=== PATIENT | female | born 1990 ===

== ENCOUNTER 2018-04-28 14:49 | Emergency (ER) | payer OTHER ==
--- NOTE | 2018-04-28 16:10 | ED PDOC ---
HPI: Headache Time Seen by Provider: 04/28/18 15:42 Chief Complaint (Nursing): Dizziness/Lightheaded Chief Complaint (Provider): Headache, Tiredness History Per: Patient History/Exam Limitations: no limitations Onset/Duration Of Symptoms: Days (x1 week) Current Symptoms Are (Timing): Constant Additional Complaint(s): 27 year old female presents to the ED for evaluation of a mild headache, generalized weakness, and feeling cold for the past week. Patient states that she has constantly been feeling tired like she needs to sleep with dizziness, but no vision changes, syncopal episodes, nausea, vomiting, diarrhea, urinary symptoms, chest pain, shortness of breath, and any new exposures or recent trauma. PMD: none provided Past Medical History Reviewed: Historical Data, Nursing Documentation, Vital Signs Vital Signs: Last Vital Signs Temp 98.2 F 04/28/18 15:26 Pulse 63 04/28/18 15:26 Resp 16 04/28/18 15:26 BP 113/69 04/28/18 15:26 Pulse Ox 99 04/28/18 15:26 - Medical History PMH: No Chronic Diseases Denies: Chronic Kidney Disease - Surgical History Surgical History: Cholecystectomy - Family History Family History: States: Unknown Family Hx - Social History Current smoker - smoking cessation education provided: No Alcohol: None Drugs: Denies - Allergies Allergies/Adverse Reactions: Allergies Allergy/AdvReac Type Severity Reaction Status Date / Time No Known Allergies Allergy Verified 04/28/18 15:26 Review of Systems ROS Statement: Except As Marked, All Systems Reviewed And Found Negative Constitutional: Positive for: Weakness (and tiredness, generalized), Other (feeling cold) Eyes: Negative for: Vision Change Cardiovascular: Negative for: Chest Pain Respiratory: Negative for: Shortness of Breath Gastrointestinal: Negative for: Nausea, Vomiting, Diarrhea Genitourinary Female: Negative for: Dysuria, Frequency, Incontinence Neurological: Positive for: Weakness, Headache, Dizziness. Negative for: Other (syncopal episode) Physical Exam - Reviewed Nursing Documentation Reviewed: Yes Vital Signs Reviewed: Yes - Physical Exam Appears: Positive for: No Acute Distress Head Exam: Positive for: ATRAUMATIC, NORMAL INSPECTION, NORMOCEPHALIC Skin: Positive for: Normal Color, Warm, Dry. Negative for: Rash Eye Exam: Positive for: EOMI, Normal appearance, PERRL ENT: Positive for: Normal ENT Inspection Neck: Positive for: Normal, Painless ROM, Supple Cardiovascular/Chest: Positive for: Regular Rate, Rhythm Respiratory: Positive for: Normal Breath Sounds. Negative for: Respiratory Distress Gastrointestinal/Abdominal: Positive for: Normal Exam, Soft. Negative for: Tenderness Back: Positive for: Normal Inspection. Negative for: L CVA Tenderness, R CVA Tenderness Extremity: Positive for: Normal ROM (all extremities). Negative for: Tenderness Neurological/Psych: Positive for: Awake, Alert, Symmetric/Intact Strength, Oriented (x3), emergency medical technician II-XII (grossly intact). Negative for: Motor/Sensory Deficits, Facial Droop - Laboratory Results Result Diagrams: 04/28/18 18:17 04/28/18 18:17 Lab Results: no acute - ECG ECG: Positive for: Interpreted By Me, Viewed By Me ECG Rhythm: Positive for: Normal QRS, Normal ST Segment, Sinus Rhythm O2 Sat by Pulse Oximetry: 99 (RA) Pulse Ox Interpretation: Normal - CT Scan/US ct Other Rad Studies (CT/US): Read By Radiologist Other Rad Interpretation: no acute - Progress ED Course And Treament: 184: Stable. AAOx3. Pain free. Tolerated PO. Fu with pcp. Medical Decision Making Medical Decision Making: Time: 1549 Impression: generalized weakness, headache Initial Plan: --EKG --CT head without contrast --CMP --Trop I --U-dip --U-preg --CBC with differential --Normal saline IV --Reevaluation Scribe Attestation: Documented by Leslye Sampson, acting as a scribe for Malachi Perez MD. Provider Scribe Attestation: All medical record entries made by the Scribe were at my direction and personally dictated by me. I have reviewed the chart and agree that the record accurately reflects my personal performance of the history, physical exam, medical decision making, and the department course for this patient. I have also personally directed, reviewed, and agree with the discharge instructions and disposition. Disposition - Clinical Impression Clinical Impression: Dizziness - Patient ED Disposition Is Patient to be Admitted: No Counseled Patient/Family Regarding: Studies Performed, Diagnosis, Need For Followup - Disposition Referrals: [facility] [Outside] - 04/30/18 Disposition: Routine/Home Disposition Time: 16:39 Condition: STABLE Instructions: Dizziness, Nonvertigo, (DC) Print Language: KITTITIAN
[2018-04-28] MEDS ORDERED: Sodium Chloride 0.9% 1,000 ML IV STA (16:13)
--- NOTE | 2018-04-28 16:43 | CT ---
Date of service: 04/28/2018 PROCEDURE: CT HEAD WITHOUT CONTRAST. HISTORY: Headache COMPARISON: None available. TECHNIQUE: Axial computed tomography images were obtained through the head/brain without intravenous contrast. Radiation dose: Total exam DLP = 669.43 mGy-cm. This CT exam was performed using one or more of the following dose reduction techniques: Automated exposure control, adjustment of the mA and/or kV according to patient size, and/or use of iterative reconstruction technique. FINDINGS: HEMORRHAGE: No intracranial hemorrhage. BRAIN: No mass effect or edema. No atrophy or chronic microvascular ischemic changes. VENTRICLES: Unremarkable. No hydrocephalus. CALVARIUM: Unremarkable. PARANASAL SINUSES: Frontal sinuses are hypoplastic. Remaining visualized paranasal sinuses are well-developed and currently well-aerated. MASTOID AIR CELLS: Unremarkable as visualized. No inflammatory changes. OTHER FINDINGS: None. IMPRESSION: Normal CT of the Head.
[2018-04-28 18:23] LABS: BASO # 0.1 K/uL (0.0-0.2); EOS # 0.2 K/uL (0.0-0.7); EOS % 2.1 % (0.0-4.0); HEMOGLOBIN 13.1 g/dL (12.0-16.0); LYMPH # 2.9 K/uL (1.0-4.3); LYMPH % 39.1 % (20.0-40.0); MEAN CELL VOLUME 89.5 fl (81.0-99.0); MEAN CORPUSCULAR HEMOGLOBIN 29.4 pg (27.0-31.0); MEAN CORPUSCULAR HGB CONC 32.9 g/dL (33.0-37.0); MEAN PLATELET VOLUME 9.4 fl (7.2-11.7); MONO # 0.7 K/uL (0.0-0.8); MONO % 9.6 % (0.0-10.0); NEUT # 3.6 K/uL (1.8-7.0); NEUT % 48.2 % (50.0-75.0); RBC 4.44 Mil/uL (3.80-5.20); RED CELL DISTRIBUTION WIDTH 12.9 % (11.5-14.5); WHITE BLOOD COUNT 7.5 K/uL (4.8-10.8)
[2018-04-28 18:29] LABS: ALB/GLOB RATIO 1.4 (1.0-2.1); ALBUMIN 4.5 g/dL (3.5-5.0); ALT/SGPT 128 U/L (9-52); AST/SGOT 74 U/L (14-36); BLOOD UREA NITROGEN 10 mg/dl (7-17); CALCIUM 9.8 mg/dL (8.4-10.2); GFR NON-AFRICAN AMERICAN > 60
[2018-04-28 18:54] VITALS: BP 120/70; PULSE 74; RESP 20; TEMP 98; O2SAT 98
--- NOTE | 2018-04-29 16:42 | CARD ---
APPROVED REPORT Date of service: 04/28/2018 EKG Measurement Heart [id number] <Conclusion> Sinus bradycardia Otherwise normal ECG
== END 2018-04-28 18:54 | disposition home or self-care (01) ==
LOC: H.ER 14:49
DX: R42 Dizziness and giddiness (principal)
CPT/HCPCS: 70450; 80053; 81025; 82948; 84484; 85025; 93005; 96360; 99285; J7030

== ENCOUNTER 2018-05-29 08:30 | Emergency (ER) | payer OTHER ==
[2018-05-29 08:36] VITALS: PULSE 71; O2SAT 100
[2018-05-29 08:37] VITALS: BMI 22.1
--- NOTE | 2018-05-29 10:11 | ED PDOC ---
HPI: Abdomen Additional Complaint(s): 27 y/o F with no known PMH is complaining of nonradiating, intermittent dull lower abdominal pain, 8/10 x 3-4 days, not accompanied by fever, chills, nausea, vomitting, diarrhea or vaginal bleeding. She reports LMP: approx.03/20/2017, but uncertain. She denies any hx of STI. OBGNhx: denies any previous pregnancies (no abx, miscarriages) PMH: denies Meds: denies Allergies: NKDA Surghx: cholecystectomy 5 yrs ago Famhx: noncontributory Sochx: denies etOH, cigarette or elicit drug use ROS: all points reviewed and are negative unless otherwise mentioned in HPI <Bernadette Macario - Last Filed: 05/29/18 12:37> <Boby Osman - Last Filed: 05/29/18 15:46> Time Seen by Provider: 05/29/18 09:10 Chief Complaint (Nursing): Abdominal Pain Supervising Attending Note - Supervising Attending Note The Documented history was done by the: Physician Certified Registered Dental Assistant The documented physical exam was done by the: Physician Certified Registered Dental Assistant The documented procedures were done by the: Physician Certified Registered Dental Assistant - Attestation: I have personally seen and examined this patient.: Yes I have fully participated in the care of the patient.: Yes I have reviewed all pertinent clinical information: Yes <Boby Osman Y - Last Filed: 05/29/18 15:46> Past Medical History Vital Signs: Last Vital Signs Temp 98.8 F 05/29/18 08:35 Pulse 71 05/29/18 08:35 Resp 05/29/18 08:35 BP 106/67 05/29/18 08:35 Pulse Ox 100 05/29/18 08:35 - Medical History PMH: Denies: Chronic Kidney Disease - Surgical History Surgical History: Cholecystectomy - Family History Family History: States: Unknown Family Hx <Bernadette Macario - Last Filed: 05/29/18 12:37> Vital Signs: Last Vital Signs Temp 98.8 F 05/29/18 08:35 Pulse 71 05/29/18 08:35 Resp 15 05/29/18 08:35 BP 106/67 05/29/18 08:35 Pulse Ox 100 05/29/18 12:39 <Boby Osman Y - Last Filed: 05/29/18 15:46> - Allergies Allergies/Adverse Reactions: Allergies Allergy/AdvReac Type Severity Reaction Status Date / Time No Known Allergies Allergy Verified 04/28/18 15:26 Physical Exam - Physical Exam Appears: Positive for: Non-toxic, No Acute Distress Head Exam: Positive for: ATRAUMATIC, NORMAL INSPECTION Skin: Positive for: Normal Color Eye Exam: Positive for: PERRL ENT: Positive for: Normal ENT Inspection. Negative for: Nasal Congestion, Pharyngeal Erythema, Tonsillar Exudate Neck: Positive for: Painless ROM Cardiovascular/Chest: Positive for: Regular Rate, Rhythm. Negative for: Murmur Respiratory: Negative for: Wheezing, Respiratory Distress Gastrointestinal/Abdominal: Positive for: Bowel Sounds, Soft, Tenderness, Other (midline abdominal scar noted above the umbilicus; + suprapubic tenderness, no rigidity, noguarding, no rebound tenderness). Negative for: Distended, Guarding, Rebound Back: Negative for: L CVA Tenderness, R CVA Tenderness Extremity: Positive for: Capillary Refill. Negative for: Tenderness Neurological/Psych: Positive for: Awake, Alert <Bernadette Macario - Last Filed: 05/29/18 12:37> - Laboratory Results Result Diagrams: 05/29/18 10:13 05/29/18 10:13 Lab Results: B-HC Urine dip results: Negative for: Leukocyte Esterase, Blood, Nitrate, Glucose, Protein - ECG O2 Sat by Pulse Oximetry: 100 <Bernadette Macario - Last Filed: 05/29/18 12:37> - Laboratory Results Result Diagrams: 05/29/18 10:13 05/29/18 10:13 Lab Results: Total Bilirubin 0.6 mg/dl (0.2-1.3) 05/29/18 10:13 AST 36 U/L (14-36) D 05/29/18 10:13 ALT 49 U/L (9-52) 05/29/18 10:13 Alkaline Phosphatase 69 U/L (38-126) 05/29/18 10:13 Total Protein 7.1 G/DL (6.3-8.2) 05/29/18 10:13 Albumin 4.4 g/dL (3.5-5.0) 05/29/18 10:13 Globulin 2.7 gm/dL (2.2-3.9) 05/29/18 10:13 Albumin/Globulin Ratio 1.6 (1.0-2.1) 05/29/18 10:13 Urine Color Yellow (YELLOW) 05/29/18 10:10 Urine Clarity Cloudy (Clear) 05/29/18 10:10 Urine pH 7.0 (5.0-8.0) 05/29/18 10:10 Ur Specific [place] 1.018 (1.003-1.030) 05/29/18 10:10 Urine Protein Negative mg/dL (NEGATIVE) 05/29/18 10:10 Urine Glucose (UA) Neg mg/dL (NEGATIVE) 05/29/18 10:10 Urine Ketones Negative mg/dL (NEGATIVE) 05/29/18 10:10 Urine Blood Negative (NEGATIVE) 05/29/18 10:10 Urine Nitrate Negative (NEGATIVE) 05/29/18 10:10 Urine Bilirubin Negative (NEGATIVE) 05/29/18 10:10 Urine Urobilinogen 0.2-1.0 mg/dL (0.2-1.0) 05/29/18 10:10 Ur Leukocyte Esterase Neg Laura/uL (Negative) 05/29/18 10:10 Urine RBC (Auto) 3 /hpf (0-3) 05/29/18 10:10 Urine Microscopic WBC 2 /hpf (0-5) 05/29/18 10:10 Ur Squamous Epith Cells 16 /hpf (0-5) H 05/29/18 10:10 Urine Bacteria Few (<OCC) H 05/29/18 10:10 Urine Sperm (Auto) Rare /hpf (NONE) H 05/29/18 10:10 Beta HCG, Quant 186.51 mIU/mL 05/29/18 10:13 - Progress ED Course And Treament: 14:50 Patient will come back in 2 days as her HCG is low. <Boby Osman Y - Last Filed: 05/29/18 15:46> Medical Decision Making Medical Decision Making: note pt seen at bedside. presenting with pelvic pain and positive . pt without vaginal bleeding. hcg still low pt feels iumproved after tylenol. instructed to follow up in 2 days for repeat hcg and ultrasound and if symptoms worsen to return immediately. pt agreeable to plan. <Boby Osman Y - Last Filed: 05/29/18 15:46> Disposition Discussed With Dr.: Boby Osman Comment: Patient care transferred to Dr. Osman. Patient's UA was negative for signs of infection. B-HCG was positive (186). Awaiting official report of ultrasound to confirm IUP. - Disposition Disposition Time: 12:35 <Bernadette Macario - Last Filed: 05/29/18 12:37> <Boby Osman - Last Filed: 05/29/18 15:46> - Clinical Impression Clinical Impression: Abdominal pain during - Disposition Referrals: [facility] [Provider Group] Condition: IMPROVED Additional Instructions: follow up in 2 days in the ER for repeat bloodwork/Ultrasound return to the ED with any worsening or concerning symptoms Instructions: Stomach Pain in Early Forms: [facility] (Dominican)
[2018-05-29 10:21] LABS: BASO # 0.1 K/uL (0.0-0.2); BASO % 0.8 % (0.0-2.0); EOS # 0.1 K/uL (0.0-0.7); EOS % 1.8 % (0.0-4.0); HEMOGLOBIN 12.7 g/dL (12.0-16.0); LYMPH # 1.7 K/uL (1.0-4.3); LYMPH % 23.5 % (20.0-40.0); MEAN CELL VOLUME 87.2 fl (81.0-99.0); MEAN CORPUSCULAR HEMOGLOBIN 29.7 pg (27.0-31.0); MEAN CORPUSCULAR HGB CONC 34.1 g/dL (33.0-37.0); MEAN PLATELET VOLUME 8.5 fl (7.2-11.7); MONO # 0.7 K/uL (0.0-0.8); MONO % 9.4 % (0.0-10.0); NEUT # 4.8 K/uL (1.8-7.0); NEUT % 64.5 % (50.0-75.0); NRBC % 0.1 % (0.0-0.0); RBC 4.25 Mil/uL (3.80-5.20); RED CELL DISTRIBUTION WIDTH 13.4 % (11.5-14.5); WHITE BLOOD COUNT 7.5 K/uL (4.8-10.8)
[2018-05-29 10:31] LABS: SPERM URINE RARE /hpf; SQUAMOUS EPITHIAL 16 /hpf (0-5); URINE BACTERIA FEW (<OCC); URINE BILIRUBIN NEGATIVE (NEGATIVE); URINE BLOOD NEGATIVE (NEGATIVE); URINE CLARITY CLOUDY (Clear); URINE COLOR YELLOW (YELLOW); URINE GLUCOSE (UA) NEG (NEGATIVE); URINE LEUKOCYTE ESTERASE NEG Leu/uL (Negative); URINE PROTEIN NEGATIVE (NEGATIVE); URINE UROBILINOGEN 0.2-1.0 mg/dL (0.2-1.0)
[2018-05-29 10:36] LABS: ALB/GLOB RATIO 1.6 (1.0-2.1); ALBUMIN 4.4 g/dL (3.5-5.0); ALT/SGPT 49 U/L (9-52); AST/SGOT 36 U/L (14-36); BLOOD UREA NITROGEN 11 mg/dl (7-17); CALCIUM 8.6 mg/dL (8.4-10.2); GFR NON-AFRICAN AMERICAN > 60
--- NOTE | 2018-05-29 13:05 | US ---
Date of service: 05/29/2018 HISTORY: lower abd pain COMPARISON: None available. TECHNIQUE: Transabdominal and transvaginal FINDINGS: UTERUS: Measures 9.7 x 5.5 x 3.2 cm. No uterine mass. ENDOMETRIUM: Measures 20 mm in diameter. Mildly thickened. No intrauterine gestational sac identified. CERVIX: No cervical abnormality identified. RIGHT OVARY: Measures 2.6 x 2.9 x 3.4 cm. No solid mass. Normal flow. 2.2 cm corpus luteum identified. LEFT OVARY: Measures 2.6 x 1.7 x 1.8 cm. No solid mass. Normal flow. FREE FLUID: Minimal free fluid in cul-de-sac OTHER FINDINGS: None. IMPRESSION: No intrauterine gestation identified. Thickened endometrium. Right ovarian corpus luteum. Cannot exclude ectopic on the basis of this examination, in the absence of a demonstrated intrauterine gestational sac. Follow-up with serial beta HCG and transvaginal pelvic ultrasound examination is advised if is suspected.
[2018-05-29 15:39] VITALS: BP 110/72; RESP 16; TEMP 98
== END 2018-05-29 15:47 | disposition home or self-care (01) ==
LOC: H.ER 08:30
DX: O26.91 Pregnancy related conditions, unspecified, first trimester (principal); R10.2 Pelvic and perineal pain

== ENCOUNTER 2018-06-09 16:41 | Emergency (ER) | payer SELFPAY ==
[2018-06-09 16:42] VITALS: BMI 22.1
[2018-06-09 16:52] VITALS: O2SAT 98
[2018-06-09 18:07] LABS: BASO # 0.1 K/uL (0.0-0.2); BASO % 0.7 % (0.0-2.0); EOS # 0.3 K/uL (0.0-0.7); EOS % 2.6 % (0.0-4.0); HEMOGLOBIN 11.8 g/dL (12.0-16.0); LYMPH % 28.5 % (20.0-40.0); MEAN CELL VOLUME 89.6 fl (81.0-99.0); MEAN CORPUSCULAR HEMOGLOBIN 29.8 pg (27.0-31.0); MEAN CORPUSCULAR HGB CONC 33.2 g/dL (33.0-37.0); MEAN PLATELET VOLUME 8.6 fl (7.2-11.7); MONO # 0.9 K/uL (0.0-0.8); MONO % 8.2 % (0.0-10.0); NEUT # 6.4 K/uL (1.8-7.0); NRBC % 0.1 % (0.0-0.0); RBC 3.97 Mil/uL (3.80-5.20); RED CELL DISTRIBUTION WIDTH 13.6 % (11.5-14.5); WHITE BLOOD COUNT 10.7 K/uL (4.8-10.8)
[2018-06-09 18:13] LABS: BLOOD UREA NITROGEN 10 mg/dl (7-17); CALCIUM 9.2 mg/dL (8.4-10.2); GFR NON-AFRICAN AMERICAN > 60
[2018-06-09] MEDS ORDERED: Sodium Chloride 0.9% 1,000 ML IV STA (18:14)
[2018-06-09 18:32] LABS: INR 1.1; PROTHROMBIN TIME 12.4 Seconds (9.8-13.1)
--- NOTE | 2018-06-09 18:53 | ED PDOC ---
HPI: Female Pain Time Seen by Provider: 06/09/18 17:00 Chief Complaint (Nursing): Female Genitourinary Chief Complaint (Provider): Vaginal bleeding and abdominal pain History Per: Patient History/Exam Limitations: no limitations Current Symptoms Are (Timing): Still Present Associated Symptoms: Back Pain. denies: Vomiting Additional Complaint(s): 27 y/o female, , presents to the ER with vaginal bleeding and abdominal pain. Patient reports she has had vaginal bleeding for 1 week but worsened this morning. Patient is also complaining of lower abdominal cramps that comes and goes and lower back pain that started today. She states she sees clots mainly when she goes to the bathroom. Denies dizziness, chest pain, syncope, or vomiting. Patient is 4 weeks . She states she was here a week ago and had an US done that showed no IUP. Patient went to [facility] where they did repeat hormone level which was going up and was supposed to follow up again. PMD: none Past Medical History Reviewed: Historical Data, Nursing Documentation, Vital Signs Vital Signs: Last Vital Signs Temp 98.5 F 06/09/18 16:48 Pulse 78 06/09/18 16:48 Resp 16 06/09/18 16:48 BP 110/61 06/09/18 16:48 Pulse Ox 98 06/09/18 16:48 Primary Care Provider: FAMILY PROVIDER,NO - Medical History PMH: No Chronic Diseases Denies: Chronic Kidney Disease - Surgical History Surgical History: Cholecystectomy - Family History Family History: States: Unknown Family Hx - Allergies Allergies/Adverse Reactions: Allergies Allergy/AdvReac Type Severity Reaction Status Date / Time No Known Allergies Allergy Verified 06/09/18 16:47 Review of Systems ROS Statement: Except As Marked, All Systems Reviewed And Found Negative Cardiovascular: Negative for: Chest Pain Gastrointestinal: Positive for: Abdominal Pain. Negative for: Vomiting Genitourinary Female: Positive for: Vaginal Bleeding Musculoskeletal: Positive for: Back Pain (lower) Neurological: Negative for: Dizziness, Other (syncope) Physical Exam - Reviewed Nursing Documentation Reviewed: Yes Vital Signs Reviewed: Yes - Physical Exam Appears: Positive for: No Acute Distress Head Exam: Positive for: ATRAUMATIC, NORMOCEPHALIC Skin: Positive for: Normal Color, Warm, Dry Eye Exam: Positive for: Normal appearance, EOMI, PERRL Neck: Positive for: Normal, Painless ROM Cardiovascular/Chest: Positive for: Regular Rate, Rhythm Respiratory: Positive for: Normal Breath Sounds. Negative for: Wheezing, Respiratory Distress Gastrointestinal/Abdominal: Positive for: Normal Exam, Soft. Negative for: Tenderness Pelvic Exam: Positive for: Other (Blood in vault). Negative for: Mass Extremity: Positive for: Normal ROM Neurological/Psych: Positive for: Awake, Alert, Normal Tone Comments: Model Technician: ER nurse Sarah Simons - Laboratory Results Result Diagrams: 06/09/18 17:50 06/09/18 17:50 Lab Results: PT 12.4 Seconds (9.8-13.1) 06/09/18 18:18 INR 1.1 06/09/18 18:18 APTT 25.0 Seconds (25.6-37.1) L 06/09/18 18:18 Beta HCG, Quant 293.90 mIU/mL 06/09/18 17:50 - ECG O2 Sat by Pulse Oximetry: 98 (RA) Pulse Ox Interpretation: Normal Medical Decision Making Medical Decision Making: Initial Impression: Vaginal bleeding in Differential includes ectopic , threatened miscarriage, or incomplete miscarriage. Initial Plan: --Type and screen stat --BMP --Beta HCG stat --ED urine --ED urine dipstick --CBC --PTT --Prothrombin time --Sodium chloride 1000mL IV --Urinalysis --OB transvaginal US 19:00 Patient signed out to Dr. Denton. Pending US. Scribe Attestation: Documented by Murray Warner acting as a scribe for Nahed Siu MD. Provider Scribe Attestation: All medical record entries made by the Scribe were at my direction and personally dictated by me. I have reviewed the chart and agree that the record accurately reflects my personal performance of the history, physical exam, medical decision making, and the department course for this patient. I have also personally directed, reviewed, and agree with the discharge instructions and disposition. Disposition - Clinical Impression Clinical Impression: Missed - Patient ED Disposition Is Patient to be Admitted: Transfer of Care Counseled Patient/Family Regarding: Studies Performed, Diagnosis - Disposition Disposition: Transfer of Care Disposition Time: 19:00 Condition: STABLE Instructions: Miscarriage Forms: [facility] (French) Print Language: WOLOF Patient Signed Over To: Sheldon Denton
[2018-06-09 19:25] LABS: SQUAMOUS EPITHIAL 5 /hpf (0-5); URINE BILIRUBIN NEGATIVE (NEGATIVE); URINE BLOOD LARGE (NEGATIVE); URINE CLARITY CLEAR (Clear); URINE COLOR STRAW (YELLOW); URINE GLUCOSE (UA) NEG (NEGATIVE); URINE LEUKOCYTE ESTERASE NEG Leu/uL (Negative); URINE PROTEIN NEGATIVE (NEGATIVE); URINE UROBILINOGEN 0.2-1.0 mg/dL (0.2-1.0)
--- NOTE | 2018-06-09 19:33 | ED PDOC ---
- Laboratory Results Result Diagrams: 06/09/18 17:50 06/09/18 17:50 Lab Results: PT 12.4 Seconds (9.8-13.1) 06/09/18 18:18 INR 1.1 06/09/18 18:18 APTT 25.0 Seconds (25.6-37.1) L 06/09/18 18:18 Urine Color Straw (YELLOW) 06/09/18 19:02 Urine Clarity Clear (Clear) 06/09/18 19:02 Urine pH 8.0 (5.0-8.0) 06/09/18 19:[address] 1.005 (1.003-1.030) 06/09/18 19:02 Urine Protein Negative mg/dL (NEGATIVE) 06/09/18 19:02 Urine Glucose (UA) Neg mg/dL (NEGATIVE) 06/09/18 19:02 Urine Ketones Negative mg/dL (NEGATIVE) 06/09/18 19:02 Urine Blood Large (NEGATIVE) 06/09/18 19:02 Urine Nitrate Negative (NEGATIVE) 06/09/18 19:02 Urine Bilirubin Negative (NEGATIVE) 06/09/18 19:02 Urine Urobilinogen 0.2-1.0 mg/dL (0.2-1.0) 06/09/18 19:02 Ur Leukocyte Esterase Neg Laura/uL (Negative) 06/09/18 19:02 Urine RBC (Auto) 3 /hpf (0-3) 06/09/18 19:02 Urine Microscopic WBC 1 /hpf (0-5) 06/09/18 19:02 Ur Squamous Epith Cells 5 /hpf (0-5) 06/09/18 19:02 Hyaline Casts 3-5 /hpf (0-2) H 06/09/18 19:02 Beta HCG, Quant 293.90 mIU/mL 06/09/18 17:50 - ECG O2 Sat by Pulse Oximetry: 98 (RA) Medical Decision Making Medical Decision Makin:00 Patient signed out to this provider from Dr. Siu. Pending US. 20:18 OB transvaginal US Findings: GESTATION: There is no intrauterine gestation. UTERUS: Unremarkable. No myometrial mass. The uterus measures 7.2 x 4.4 x 3.6 cm. CERVIX: Closed. Unremarkable. OVARIES: Right ovary measures 3.7 x 3.9 x 2.3 cm. There is a complex cyst measuring 1.3 x 1.3 x 1.6 cm. There is a complex mass measuring 2.1 x 2 x 1.8 cm along the medial aspect of the right ovary. Left ovary measures 2.7 x 2.5 x 1.3 cm. FREE FLUID: Moderate amount of free fluid seen within the cul-de-sac. IMPRESSION: No intrauterine gestation. Complex cyst right ovary measuring 1.3 x 1.3 x 1.6 cm. There is a complex mass along the medial aspect of the right ovary and this measures 2.1 x 2 x 1.8 cm. Moderate amount of free fluid in the cul-de-sac. The possibility of ectopic gestation is not excluded and correlation with beta- hCG levels and gynecologic consultation recommended. 21:26 Repeat Beta HCG is 293. Patient reports her most recent beta was in the 500 range at [facility]. Labs and US were discussed with Dr. Marina who thinks patient is missed AB and should have repeat beta in 48 hours. Patient informed to go to [facility] where she is an established patient or return here. Patient is stable for discharge. Return precautions provided. Scribe Attestation: Documented by Murray Warner acting as a scribe for Sheldon Denton MD. Provider Scribe Attestation: All medical record entries made by the Scribe were at my direction and personally dictated by me. I have reviewed the chart and agree that the record accurately reflects my personal performance of the history, physical exam, medical decision making, and the department course for this patient. I have also personally directed, reviewed, and agree with the discharge instructions and disposition. Disposition - Clinical Impression Clinical Impression: Missed - POA Present On Arrival: None - Disposition Disposition: Routine/Home Disposition Time: 21:30 Condition: STABLE Instructions: Miscarriage Forms: [facility] ([place]izen [place]) Print Language: PANAMANIAN
[2018-06-09 21:29] VITALS: BP 115/84; PULSE 76; RESP 19; TEMP 99.2
--- NOTE | 2018-06-10 18:25 | US ---
Date of service: 06/09/2018 HISTORY: Lower abd pain vag bleeding COMPARISON: Comparison made with prior study [id number] TECHNIQUE: Transabdominal transvaginal sonographic evaluation of the pelvis performed. FINDINGS: UTERUS: Measures 7.2 x 4.4 x 3.6 cm. No evidence of intrauterine gestation.. No fibroid or other mass lesion seen. ENDOMETRIUM: Endometrium measures approximately 7 mm in diameter. Unremarkable. CERVIX: No cervical abnormality identified. Cervix measures 2.5 cm RIGHT OVARY: Measures 3.7 x 3.9 x 2.3 cm. . Complex appearing cyst measuring 1.3 x 1.3 x 1.5 cm... There is a complex appearing masslike lesion adjacent to the right ovary measuring 2.1 x 2.0 x 1.8 cm. Ectopic must be excluded. tent assembler consultation recommended. Follow-up serial serum beta HCG and serial ultrasound recommended. Normal flow. LEFT OVARY: Measures 2.7 x 2.5 x 1.3 cm. No solid mass. Normal flow. FREE FLUID: Free fluid is present within the cul de sac OTHER FINDINGS: None. IMPRESSION: No evidence of intrauterine gestation. Complex appearing cystic structure right adnexa with an adjacent complex appearing masslike density adjacent to the right ovary; rule out ectopic . Concordant preliminary findings.
== END 2018-06-09 21:27 | disposition home or self-care (01) ==
LOC: H.ER 16:41
DX: O02.1 Missed abortion (principal)
CPT/HCPCS: 76817; 80048; 81003; 84702; 85025; 85610; 85730; 86850; 86900; 96360; 99284; J7030

== ENCOUNTER 2018-06-11 09:21 | Emergency (ER) | payer SELFPAY ==
[2018-06-11 09:27] VITALS: BMI 23.4
[2018-06-11 09:28] VITALS: TEMP 98.7; O2SAT 100
--- NOTE | 2018-06-11 10:33 | ED PDOC ---
HPI: Female Pain Time Seen by Provider: 06/11/18 09:33 Chief Complaint (Nursing): Female Genitourinary Chief Complaint (Provider): Female Genitourinary History Per: Patient History/Exam Limitations: no limitations Onset/Duration Of Symptoms: Days (2) Additional Complaint(s): 27 y/o female presents to the ED for an evaluation. Patient states she was here 2 days ago due to miscarriage and now here to follow up. Patient reports her vaginal bleeding is decreasing. Patient denies pain or any other symptoms. PMD: none provided Past Medical History Reviewed: Historical Data, Nursing Documentation, Vital Signs Vital Signs: Last Vital Signs Temp 98.7 F 06/11/18 09:27 Pulse 74 06/11/18 09:27 Resp 15 06/11/18 09:27 BP 103/65 06/11/18 09:27 Pulse Ox 100 06/11/18 09:27 Primary Care Provider: FAMILY PROVIDER,NO - Medical History PMH: Denies: Chronic Kidney Disease - Surgical History Surgical History: No Surg Hx, Cholecystectomy - Family History Family History: States: Unknown Family Hx - Allergies Allergies/Adverse Reactions: Allergies Allergy/AdvReac Type Severity Reaction Status Date / Time No Known Allergies Allergy Verified 06/11/18 09:31 Review of Systems ROS Statement: Except As Marked, All Systems Reviewed And Found Negative Genitourinary Female: Positive for: Vaginal Bleeding Physical Exam - Reviewed Nursing Documentation Reviewed: Yes Vital Signs Reviewed: Yes - Physical Exam Appears: Positive for: Well, Non-toxic, No Acute Distress Head Exam: Positive for: ATRAUMATIC, NORMAL INSPECTION, NORMOCEPHALIC Skin: Positive for: Normal Color, Warm, Dry Eye Exam: Positive for: EOMI, Normal appearance, PERRL ENT: Positive for: Normal ENT Inspection Neck: Positive for: Normal, Painless ROM Cardiovascular/Chest: Positive for: Regular Rate, Rhythm. Negative for: Murmur Respiratory: Positive for: Normal Breath Sounds. Negative for: Wheezing Gastrointestinal/Abdominal: Positive for: Normal Exam, Soft. Negative for: Tenderness Back: Positive for: Normal Inspection. Negative for: L CVA Tenderness, R CVA Tenderness Extremity: Positive for: Normal ROM Neurological/Psych: Positive for: Awake, Alert, Normal Tone, Oriented (x3). Negative for: Motor/Sensory Deficits - ECG O2 Sat by Pulse Oximetry: 100 Medical Decision Making Medical Decision Making: Time: 941 Initial Impression: Initial Plan: -Beta - HCG 1032: 06/09/18 US shows no urinary issue. HCG- 293. RH is positive. 1127: Today HCG repeat is 249. HCG is trending down and instructed to follow up at [facility] where she is established patient, for a repeat Beta HCG in several days. Scribe Attestation: Documented by Kenia Reynaga, acting as a scribe for Boby Brian. Provider Scribe Attestation: All medical record entries made by the Scribe were at my direction and personally dictated by me. I have reviewed the chart and agree that the record accurately reflects my personal performance of the history, physical exam, medical decision making, and the department course for this patient. I have also personally directed, reviewed, and agree with the discharge instructions and disposition. Disposition - Clinical Impression Clinical Impression: Missed - Disposition Disposition Time: 11:30 Condition: IMPROVED Additional Instructions: follow up in [facility] for repeat bloodwork in 2 days return to the ED with any worsening or concerning symptoms Instructions: Miscarriage (DC) Forms: [employer] (Ethiopian)
[2018-06-11 12:13] VITALS: BP 110/70; PULSE 78; RESP 18
== END 2018-06-11 12:10 | disposition home or self-care (01) ==
LOC: H.ER 09:21
DX: O02.1 Missed abortion (principal); Z01.419 Encounter for gynecological examination (general) (routine) without abnormal findings

== ENCOUNTER 2018-06-16 08:41 | Emergency (ER) | payer SELFPAY ==
[2018-06-16 08:42] VITALS: BMI 23.4
[2018-06-16 08:56] VITALS: TEMP 98.4
--- NOTE | 2018-06-16 10:04 | ED PDOC ---
HPI: Female Pain Time Seen by Provider: 06/16/18 09:32 Chief Complaint (Nursing): Female Genitourinary Chief Complaint (Provider): Female Genitourinary History Per: Patient History/Exam Limitations: no limitations Onset/Duration Of Symptoms: Intermittent Episodes Associated Symptoms: Urinary Symptoms (Sligh vaginal bleeding). denies: Nausea, Vomiting Additional Complaint(s): 27 years old female with no PMHx presents to ER for repeat US and labs. Patient was seen by Dr. Osman on 06/11/2018 for vaginal bleeding after miscarriage. She is RH+ and her last beta-HCG was 249.21 on 06/11/2018. Patient reports feeling tired, weakness and having slight vaginal bleeding that is off and on. She was seen here in the ED on 05/29, 06/09 and 06/11 for beta-HCG coming down. Patient denies abdominal pain, nausea, vomiting, allergies or taking any medications. She does not followup with [facility]. PMD: None provided Past Medical History Reviewed: Historical Data, Nursing Documentation, Vital Signs Vital Signs: Last Vital Signs Temp 98.4 F 06/16/18 08:50 Pulse 87 06/16/18 08:50 Resp 17 06/16/18 08:50 BP 100/68 06/16/18 08:50 Pulse Ox 100 06/16/18 08:50 Primary Care Provider: FAMILY PROVIDER,NO - Medical History PMH: No Chronic Diseases Denies: Chronic Kidney Disease - Surgical History Surgical History: Cholecystectomy - Family History Family History: States: Unknown Family Hx - Social History Current smoker - smoking cessation education provided: No Alcohol: None Drugs: Denies - Allergies Allergies/Adverse Reactions: Allergies Allergy/AdvReac Type Severity Reaction Status Date / Time No Known Allergies Allergy Verified 06/11/18 09:31 Review of Systems ROS Statement: Except As Marked, All Systems Reviewed And Found Negative Gastrointestinal: Negative for: Nausea, Vomiting, Abdominal Pain Genitourinary Female: Positive for: Vaginal Bleeding (Slight) Neurological: Positive for: Weakness Physical Exam - Reviewed Nursing Documentation Reviewed: Yes Vital Signs Reviewed: Yes - Physical Exam Appears: Positive for: Well, No Acute Distress Head Exam: Positive for: ATRAUMATIC, NORMOCEPHALIC Skin: Positive for: Normal Color, Warm, Dry Neck: Positive for: Normal, Painless ROM, Supple Cardiovascular/Chest: Positive for: Regular Rate, Rhythm. Negative for: Murmur Respiratory: Positive for: Normal Breath Sounds. Negative for: Respiratory Distress Gastrointestinal/Abdominal: Positive for: Normal Exam, Soft. Negative for: Tenderness (lower), Guarding, Rebound Back: Positive for: Normal Inspection. Negative for: L CVA Tenderness, R CVA Tenderness Extremity: Positive for: Normal ROM. Negative for: Pedal Edema, Swelling Neurological/Psych: Positive for: Awake, Alert, Oriented (x3) - Laboratory Results Interpretation Of Abn Labs: 232.99 bhcg - ECG O2 Sat by Pulse Oximetry: 100 (RA) Pulse Ox Interpretation: Normal - Progress ED Course And Treament: 1232: Spoke with OBGYN attending. Will come see pt. in the ER. Pt. is stable. AAOx3. Made aware of findings on US and ectopic concern. 1334: OBGYN saw pt. Feels not likely ectopic as beta trending down. Pt. in no pain, no bleeding, and is comfortable. Wants fu with obgyn clinic in 1 week. AAOx3. Tolerated PO. Medical Decision Making Medical Decision Making: Time: 941 Initial plan: --Beta-HCG --OB Transvaginal US 1215 OB Transvaginal US FINDINGS: UTERUS: Uterus measures 5.9 x 4.8 x 2.8 cm. Anteverted and normal in size. The central endometrial echo complex measures 3.0 mm and is normal in appearance. No evidence for intrauterine gestational sac. CERVIX: Long and closed. No cervical abnormality seen. RIGHT OVARY: Measures 3.3 x 3.9 x 1.9 cm. No mass. Normal flow. There is a 1.4 x 1.3 cm simple cyst in the right ovary. There is redemonstration of 1.8 x 2.0 x 1.9 cm round hypoechoic mass with central cystic areas without significant peripheral increased vascularity medial to the ovary LEFT OVARY: Measures 3.2 x 2.7 x 1.7 cm. No mass. Normal flow. FREE FLUID: None. OTHER FINDINGS: None. IMPRESSION: No evidence for intrauterine gestational sac. Redemonstration of 1.8 x 2.0 x 1.9 cm complex structure without significant increased peripheral vascularity in the right adnexa, ectopic is a consideration. Clinical follow-up is advised. Important findings were discussed with Dr. Malachi Perez in the ER on 06/16/2018 at Scribe Attestation: Documented by Faustina Espinoza acting as a scribe for Malachi Perez MD. Provider Scribe Attestation: All medical record entries made by the Scribe were at my direction and personally dictated by me. I have reviewed the chart and agree that the record accurately reflects my personal performance of the history, physical exam, medical decision making, and the department course for this patient. I have also personally directed, reviewed, and agree with the discharge instructions and disposition. Disposition - Clinical Impression Clinical Impression: Miscarriage - Patient ED Disposition Is Patient to be Admitted: No Counseled Patient/Family Regarding: Studies Performed, Diagnosis, Need For Followup - Disposition [facility] - [facility]18 Disposition: Routine/Home Disposition Time: 12:30 Condition: STABLE Additional Instructions: See the obgyn clinic without fail in 5 days. Return right away for further evaluation if any pain, weakness, vaginal bleeding, or not feeling right. Instructions: Miscarriage Forms: [employer] (Sierra Leonean)
--- NOTE | 2018-06-16 12:19 | US ---
Date of service: 06/16/2018 PROCEDURE: OB Pelvic Ultrasound HISTORY: preg and pain; miscarriage; beta elevated COMPARISON: 06/09/2018. FINDINGS: UTERUS: Uterus measures 5.9 x 4.8 x 2.8 cm. Anteverted and normal in size. The central endometrial echo complex measures 3.0 mm and is normal in appearance. No evidence for intrauterine gestational sac. CERVIX: Long and closed. No cervical abnormality seen. RIGHT OVARY: Measures 3.3 x 3.9 x 1.9 cm. No mass. Normal flow. There is a 1.4 x 1.3 cm simple cyst in the right ovary. There is redemonstration of 1.8 x 2.0 x 1.9 cm round hypoechoic mass with central cystic areas without significant peripheral increased vascularity medial to the ovary LEFT OVARY: Measures 3.2 x 2.7 x 1.7 cm. No mass. Normal flow. FREE FLUID: None. OTHER FINDINGS: None. IMPRESSION: No evidence for intrauterine gestational sac. Redemonstration of 1.8 x 2.0 x 1.9 cm complex structure without significant increased peripheral vascularity in the right adnexa, ectopic is a consideration. Clinical follow-up is advised. Important findings were discussed with Dr. Malachi Perez in the ER on 06/16/2018 at 12:15 p.m.
--- NOTE | 2018-06-16 14:05 | CP.PCM.CON ---
<Moreno Núñez - Last Filed: 06/16/18 14:31> History of Present Illness - History of Present Illness History of Present Illness: 27 y/o F , with PMHx of PCOS, presents to ER for follow up for repeat US and labs. Patient was seen in ER prior on 06/11/18 for miscarriage. Patient unsure about LMP but reports having last period on 04/17/18. Patient started having vaginal bleeding on 06/03/18 for which she followed up at [facility] on 06/07/18 and was told that her B-HCG were in 500s. On 06/10/18 patient noticed worsening vaginal bleeding with abdominal pain, cramping. Reports tissue with blood and clots coming out of vagina which prompt her to come ER on 06/11/18. B- HCG trending down since than. B HCG 293 on 06/09, 249 on 06/11 and 232 on 06/16. Patient reports reduction in vaginal bleeding, denies abdominal pain, cramping, fever, chills, back pain, N/V. Reports mild fatigue for past 1 week. OB Hx: , No care GynHx: Hx of PCOS x 8 years, Denies Hx STIs, Denies Hx ectopic in the past, sexually active with 1 partner in last 1 year. Review of Systems - Reproductive: Female Reproductive:Female: Abnormal Vaginal Bleeding Past Patient History - Infectious Disease Hx of Infectious Diseases: None - Past Social History Alcohol: None Drugs: Denies - CARDIAC Hx Cardiac Disorders: No - PULMONARY Hx Respiratory Disorders: No - NEUROLOGICAL Hx Neurological Disorder: No - HEENT Hx HEENT Problems: No - RENAL Hx Chronic Kidney Disease: No - ENDOCRINE/METABOLIC Hx Endocrine Disorders: No - HEMATOLOGICAL/ONCOLOGICAL Hx Blood Disorders: No - INTEGUMENTARY Hx Dermatological Problems: No - MUSCULOSKELETAL/RHEUMATOLOGICAL Hx Musculoskeletal Disorders: No - GASTROINTESTINAL Hx Gastrointestinal Disorders: No - GENITOURINARY/GYNECOLOGICAL Hx Genitourinary Disorders: No - PSYCHIATRIC Hx Psychophysiologic Disorder: No Hx Substance Use: No - SURGICAL HISTORY Hx Cholecystectomy: Yes - ANESTHESIA Hx Anesthesia: Yes Hx Anesthesia Reactions: No Meds Allergies/Adverse Reactions: Allergies Allergy/AdvReac Type Severity Reaction Status Date / Time No Known Allergies Allergy Verified 06/11/18 09:31 Physical Exam - Constitutional Appears: Well, No Acute Distress - Eye Exam Eye Exam: EOMI, PERRL - Respiratory Exam Respiratory Exam: Clear to Auscultation Bilateral, NORMAL BREATHING PATTERN - Cardiovascular Exam Cardiovascular Exam: REGULAR RHYTHM, +S1, +S2 - GI/Abdominal Exam GI & Abdominal Exam: Normal Bowel Sounds, Soft. absent: Distended, Guarding Additional comments: Mild LLQ tenderness on deep palpation. No guarding, rebound, rigidity - Neurological Exam Neurological exam: Alert, Oriented x3 - Psychiatric Exam Psychiatric exam: Normal Affect, Normal Mood - Skin Skin Exam: Dry, Intact, Normal Color, Warm Results - Vital Signs Recent Vital Signs: Last Vital Signs Temp 98.4 F 06/16/18 08:50 Pulse 87 06/16/18 08:50 Resp 17 06/16/18 08:50 BP 100/68 06/16/18 08:50 Pulse Ox 100 06/16/18 13:40 - Labs Labs: Laboratory Results - last 24 hr 06/16/18 09:50 Beta HCG, Quant 232.99 Assessment & Plan - Assessment and Plan (Free Text) Assessment: 27 y/o S/P miscarriage presents to ER for follow up US and Labs US:No evidence for intrauterine gestational sac.Redemonstration of 1.8 x 2.0 x 1.9 cm complex structure without significant increased peripheral vascularity in the right adnexa, ectopic is a consideration. Clinical follow-up is advised. Labs: B HC>249>232 , Trending down Plan: Likely miscarriage, Ectopic can not be ruled out but less likely considering patient noticed passage of tissue, clots with heavy bleeding 1 week prior. - Vaginal bleeding decreasing - Patient asymptomatic otherwise - B HCG trending down - Patient advised to F/U with [facility] on 06/19/18. 8:40am with Dr. Knowles for B HCG monitoring - ER precautions provided. Patient advised to return to ER if increased vaginal bleeding/fever/worsening abdominal pain/cramping. Patient verbalized understanding. Case discussed with Dr. Arnett <Sathish Arnett - Last Filed: 06/17/18 18:42> Results - Vital Signs Recent Vital Signs: Last Vital Signs Temp 98.4 F 06/16/18 14:00 Pulse 80 06/16/18 14:00 Resp 18 06/16/18 14:00 BP 106/64 06/16/18 14:00 Pulse Ox 99 06/16/18 14:00 Attending/Attestation - Attestation I have personally seen and examined this patient.: Yes I have fully participated in the care of the patient.: Yes I have reviewed all pertinent clinical information: Yes
[2018-06-16 14:08] VITALS: BP 106/64; PULSE 80; RESP 18; O2SAT 99
== END 2018-06-16 14:00 | disposition home or self-care (01) ==
LOC: H.ER 08:41
DX: O03.9 Complete or unspecified spontaneous abortion without complication (principal); E28.2 Polycystic ovarian syndrome